=== PATIENT | female | born 1980 | race Two or more races ===

== ENCOUNTER 2018-12-24 08:53 | Emergency (ER) | payer MEDICAID ==
[2018-12-24] MEDS ORDERED: ONDANSETRON 4 MG TAB.RAPDIS PO ONE (10:11)
[2018-12-24] MEDS ORDERED: ACETAMINOPHEN 325 MG TABLET PO ONE (10:12)
--- NOTE | 2018-12-24 10:14 | ER Document Report ---
ED Medical Screen (RME) - General Chief Complaint: Numbness Stated Complaint: ARM/HAND TINGLING Time Seen by Provider: 12/24/18 10:10 Mode of Arrival: Ambulatory Information source: Patient Notes: 38-year-old female presented to ED for complaint of tingling in her right hand while she was driving to work. She states that then started in her arm. She is speaking in full sentences telling me the story. She is also alert oriented with equal facial expressions no facial droop moving arms and legs freely walks with a even steady gait pupils equal and react to light. She states that she st arted having a pain in the right side of her neck and in the front of her head. She states she feels a little out of it but she is speaking in full sentences making perfect sense. States she felt bloated yesterday. She states she is trying to quit smoking is down to to 3 cigarettes a day using a nicotine patch. She does smoke pot occasionally. I have greeted and performed a rapid initial assessment of this patient. A comprehensive ED assessment and evaluation of the patient, analysis of test results and completion of medical decision making process will be conducted by an additional ED providers. Dictation of this chart was performed using voice recognition software; therefore, there may be some unintended grammatical errors. TRAVEL OUTSIDE OF THE [place] IN LAST 30 DAYS: No - Related Data Allergies/Adverse Reactions: No Known Allergies Allergy (Unverified 12/24/18 08:55) Past Medical History - Social History Frequency of alcohol use: None Drug Abuse: Marijuana Renal/ Medical History: Denies: Hx Peritoneal Dialysis Past Surgical History: Reports: Hx Appendectomy, Hx Section - x2, Hx Tubal Ligation Physical Exam - Vital signs Vitals: Temp Pulse Resp BP Pulse Ox 98.1 F 87 16 143/86 H 96 12/24/18 09:00 12/24/18 09:00 12/24/18 09:00 12/24/18 09:00 12/24/18 09:00 Course - Vital Signs Vital signs: Temp Pulse Resp BP Pulse Ox 98.1 F 87 16 143/86 H 96 12/24/18 09:00 12/24/18 09:00 12/24/18 09:00 12/24/18 09:00 12/24/18 09:00
[2018-12-24 10:44] LABS: ABSOLUTE BASOPHILS # (AUTO) 0.1 10^3/uL (0.0-0.2); ABSOLUTE EOSINOPHILS # (AUTO) 0.3 10^3/uL (0.0-0.6); ABSOLUTE LYMPHOCYTES (AUTO) 2.6 10^3/uL (0.5-4.7); ABSOLUTE MONOCYTES (AUTO) 0.6 10^3/uL (0.1-1.4); ABSOLUTE NEUT (AUTO) 7.2 10^3/uL (1.7-8.2); BASOPHILS % (AUTO) 1.1 % (0-2); EOSINOPHILS % (AUTO) 2.3 % (0-6); HEMATOCRIT 47.7 % (36.0-47.0); LYMPHOCYTES % (AUTO) 24.2 % (13-45); MEAN CORPUSCULAR HEMOGLOBIN 31.4 pg (27.0-33.4); MEAN CORPUSCULAR HGB CONC 33.5 g/dL (32.0-36.0); MEAN CORPUSCULAR VOLUME 94 fl (80-97); MONOCYTES % (AUTO) 5.9 % (3-13); PLATELET COUNT 421 10^3/uL (150-450); RED BLOOD COUNT 5.09 10^6/uL (3.72-5.28); RED CELL DISTRIBUTION WIDTH 13.8 % (11.5-14.0); SEGMENTED NEUTROPHILS % (AUTO) 66.5 % (42-78); TOTAL CELLS COUNTED % (AUTO) 100 %; WHITE BLOOD COUNT 10.9 10^3/uL (4.0-10.5)
[2018-12-24 11:05] LABS: ALANINE AMINOTRANSFERASE 18 U/L (9-52); ALBUMIN 4.6 g/dL (3.5-5.0); ALKALINE PHOSPHATASE 98 U/L (38-126); ANION GAP 11 (5-19); ASPARTATE AMINO TRANSFERASE 22 U/L (14-36); BILIRUBIN,DIRECT 0.3 mg/dL (0.0-0.4); BILIRUBIN,TOTAL 0.4 mg/dL (0.2-1.3); BLOOD UREA NITROGEN 10 mg/dL (7-20); CALCIUM 10.2 mg/dL (8.4-10.2); CARBON DIOXIDE 27 mmol/L (22-30); CHLORIDE 105 mmol/L (98-107); GLUCOSE 91 mg/dL (75-110); LIPASE 47.2 U/L (23-300); SODIUM 143.3 mmol/L (137-145); TOTAL PROTEIN 7.9 g/dL (6.3-8.2)
[2018-12-24 11:09] LABS: AMORPHOUS SEDIMENT,URINE TRACE /HPF; APPEARANCE,URINE TURBID; BILIRUBIN,URINE NEGATIVE (NEGATIVE); CALCIUM OXALATE CRYSTALS,URINE MODERATE /HPF; COLOR,URINE YELLOW; GLUCOSE, URINE NEGATIVE (NEGATIVE); KETONES,URINE NEGATIVE (NEGATIVE); LEUKOCYTE ESTERASE,URINE NEGATIVE (NEGATIVE); NITRITE,URINE NEGATIVE (NEGATIVE); PROTEIN,URINE NEGATIVE (NEGATIVE); URINE SPECIFIC GRAVITY 1.027; UROBILINOGEN,URINE NEGATIVE mg/dL (<2.0)
[2018-12-24 12:51] VITALS: BP 136/94
== END 2018-12-24 12:52 | disposition left against medical advice (07) ==
LOC: ER 08:53
DX: R20.2 Paresthesia of skin (principal); M54.2 Cervicalgia; R51 Headache; F17.210 Nicotine dependence, cigarettes, uncomplicated; Z53.20 Procedure and treatment not carried out because of patient's decision for unspecified reasons
CPT/HCPCS: 99281; 36415; 83690; 84703; 85025; 80053; 81001; J3490; S0119